=== PATIENT | male | born 1995 | race Caucasian/White ===

== ENCOUNTER 2025-02-01 11:01 | Emergency (ER) | payer OTHER ==
[~2025-02-01] VITALS: Ht 177.8 cm; Wt 100.0 kg
[2025-02-01 11:11] VITALS: O2SAT 98
[2025-02-01] MEDS: HYDROCODONE/ACETAMINOPHEN 10/325MG TABLET PO ONE (11:38)
[2025-02-01] MEDS: IBUPROFEN 800MG TABLET PO ONE (11:38)
[2025-02-01 12:48] VITALS: TEMP 36.8
[2025-02-01] MEDS ORDERED: IBUP-2030 MT (13:13)
[2025-02-01 13:51] VITALS: BP 145/68; PULSE 74; RESP 16; O2SAT 99
== END 2025-02-01 13:53 | disposition home or self-care (01) ==
LOC: ER 11:47
DX: S62.300A Unspecified fracture of second metacarpal bone, right hand, initial encounter for closed fracture (principal); S20.219A Contusion of unspecified front wall of thorax, initial encounter; V89.2XXA Person injured in unspecified motor-vehicle accident, traffic, initial encounter; Y93.89 Activity, other specified; Y92.410 Unspecified street and highway as the place of occurrence of the external cause; Y99.8 Other external cause status
CPT/HCPCS: 99284; 71101; 73110; 73130; 29125; A6449